=== PATIENT | female | born 1985 | race Caucasian/White ===

== ENCOUNTER 2025-09-03 16:44 | Emergency (ER) | payer OTHER, SELFPAY ==
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
[2025-09-03 16:50] VITALS: BP 159/91; PULSE 74; RESP 20; TEMP 37.1; O2SAT 100
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
[2025-09-03 19:39] VITALS: BP 156/81; PULSE 80; RESP 18; TEMP 37.1; O2SAT 100
[2025-09-03 19:42] LABS: BEDSIDEPREGUCG Negative (Negative)
[2025-09-03 19:48] LABS: Hematocrit 38.4 % (37.0-47.0); Hemoglobin 12.7 g/dL (12.0-15.0); Immature Granulocyte Percent A 0.4 % (0-0.5); Lymphocytes Absolute Auto 1.80 K/mm3 (0.9-3.2); Mean Corpuscular HGB Conc 33.1 g/dl (32-36); Mean Corpuscular Hemoglobin 30.5 pg (26-34); Mean Corpuscular Volume 92.1 fl (80-100); Nucleated Red Blood Cells Absolute Auto 0.000 K/mm3 (0.0-0.012); Nucleated Red Blood Cells Perc 0.0 % (0.0-0.2); Platelet Count Result 353 k/mm3 (150-375); Red Blood Count 4.17 M/mm3 (4.2-5.4); White Blood Count 19.1 K/mm3 (4.5-10.0)
[2025-09-03 20:00] LABS: Alanine Aminotransferase 18 U/L (6-35); Albumin Level 4.2 g/dL (3.5-5.1); Alkaline Phosphatase 67 U/L (38-126); Anion Gap 8 mmol/L (4-12); Aspartate Amino Transferase 22 U/L (14-36); Bilirubin,Total 0.5 mg/dL (0.2-1.3); Blood Urea Nitrogen 12 mg/dL (7-17); Calcium 8.5 mg/dL (8.4-10.2); Carbon Dioxide 22 mmol/L (22-30); Chloride 105 mmol/L (98-107); Estimated CRCL calculation 95 ml/min; Estimated Glomerular Filt Rate > 60; Glucose 94 mg/dL (65-110); Potassium 3.7 mmol/L (3.4-5.0); Sodium 135 mmol/L (137-145); Total Protein 7.2 g/dL (6.3-8.2)
--- NOTE | 2025-09-03 20:35 | PC.NURSE ---
pt taken to CT in W/C by tech
[2025-09-03] MEDS: KETOROLAC 30 MG/ML VIAL (*BKC) IV PUSH (21:46)
[2025-09-03] MEDS: HYDROcodone/acetaminophen (*CRX) 5-325 MG TABLET 1 TAB PO (21:47)
[2025-09-03] MEDS: LIDOCAINE 5% PATCH 1 PATCH TRANSDERM (21:48)
[2025-09-03 22:03] VITALS: BP 150/100; PULSE 79; RESP 20; O2SAT 99
== END 2025-09-03 22:02 | disposition home or self-care (01) ==
PROVIDERS: Physician Assistant; Emergency Provider Student in an Organized Health Care Education/Training Program; PCP Hospitalist
DX: S30.11XA Contusion of abdominal wall, initial encounter (principal); S19.9XXA Unspecified injury of neck, initial encounter; R22.32 Localized swelling, mass and lump, left upper limb; N94.89 Other specified conditions associated with female genital organs and menstrual cycle; D72.829 Elevated white blood cell count, unspecified; V49.40XA Driver injured in collision with unspecified motor vehicles in traffic accident, initial encounter
CPT/HCPCS: 36415; 70450; 71260; 72125; 73130; 74177; 80053; 81025; 85025; 96374; 99284; A9270; J1885; Q9967